=== PATIENT | male | born 1945 | race Caucasian/White ===

== ENCOUNTER 2019-07-16 05:53 | Day surgery (SDC) | payer OTHER, MEDICARE ==
[~2019-07-16] VITALS: Ht 182.9 cm; Wt 71.9 kg
[~2019-07-16 05:53] MED LIST: ACET500 PO; ALLEGRA ALLERG180 MG PO; Anti-Diarrheal2 MG PO; HYDACE5; LEVSOD50 PO; LISI5 PO; METO100ER PO; OMEP20ER PO; SUCR1 PO
--- NOTE | 2019-07-16 06:24 | NUR ---
History, Chart, Medications and Allergies reviewed before start of procedure. Patient confirms NPO status and agrees with scheduled surgery. Patient States Post-Procedure ride home has been arranged with his , Eugenia.
--- NOTE | 2019-07-16 10:18 | NUR ---
recieved patient from pacu vss alert oriented. given water to drink and brought to bedside. after 15-20 minutes patient continues to be the same and wishes to get dressed and to go home.
--- NOTE | 2019-07-16 10:21 | NUR ---
Discharge instructions reviewed with patient. Patient verbalizes understanding. Copy given to patient to take home. Patient States Post-Procedure ride home has been arranged. Discharged via wheelchair to private car for ride home.
== END 2019-07-16 22:58 | disposition home or self-care (01) ==
LOC: ORSCMMR 05:53
PROVIDERS: Surgery
PROC: 0YU50JZ Supplement Right Inguinal Region with Synthetic Substitute, Open Approach (ICD-10-PCS; principal; 2019-07-16 07:30)
DX: K40.90 Unilateral inguinal hernia, without obstruction or gangrene, not specified as recurrent (principal); E03.9 Hypothyroidism, unspecified; K21.9 Gastro-esophageal reflux disease without esophagitis; Z79.899 Other long term (current) drug therapy
CPT/HCPCS: A9270-GY; C1781; J0690; J1100; J1885; J2250; J2405; J2704; J3010; J7120

== ENCOUNTER → 2022-07-15 | Outpatient (CLI) | payer OTHER ==
[2022-07-15 13:30] LABS: Bun/Creatinine Ratio 16.5 (12.0-20.0); Creatinine, Blood 0.85 mg/dL (0.60-1.20); Magnesium, Blood 1.9 mg/dL (1.6-2.4)
[2022-07-19 15:09] LABS: A/G RATIO 1.3 (0.7-1.7); ALBUMIN 3.9 g/dL (2.9-4.4); ALPHA-1-GLOBULIN 0.2 g/dL (0.0-0.4); ALPHA-2-GLOBULIN 0.6 g/dL (0.4-1.0); BETA GLOBULIN 0.9 g/dL (0.7-1.3); GAMMA GLOBULIN 1.3 g/dL (0.4-1.8); GLOBULIN, TOTAL 3.1 g/dL (2.2-3.9); M-SPIKE Not Observed g/dL (Not Observed)
== END | disposition home or self-care (01) ==
LOC: LAB 13:16 → LAB SHORT 13:16
PROVIDERS: Emergency Medicine
DX: N39.0 Urinary tract infection, site not specified (principal)
CPT/HCPCS: 80048; 82330; 83735; 84100

== ENCOUNTER 2023-01-24 08:30 | Day surgery (SDC) | payer OTHER ==
[2023-01-24] VITALS (11 sets, daily range): BP systolic 98–126; BP diastolic 60–80
[~2023-01-24] VITALS: Ht 182.9 cm; Wt 69.7 kg
[~2023-01-24 08:30] MED LIST changes: +IBUP200 PO
--- NOTE | 2023-01-24 15:43 | NUR ---
PT ARRIVED TO THE ROOM AT 1450. PT IS ALERT AND ORIENTED. TOLERATING PO. PT STILL HAS NUMBNESS/UNABLE TO MOVE BLE R/T SPINAL ANESTHESIA. PT ASSESSED FOR IGNITION SOURCES, NO FINDINGS. SPINAL ANESTHESIA SITE WNL.
--- NOTE | 2023-01-24 18:22 | NUR ---
SHIFT SUMMARY PT IS POD#0 FROM R TKA WITH DR. YOUNGER. PT HAS DENIED PAIN SINCE SURGERY, HE IS STARTING TO MOVE HIS LOWER EXTREMITIES. PT IS TOLERATING PO, VSS. FAMILY AT BEDSIDE FOR SUPPORT. WILL MONITOR UNTIL REPORT TO TIMOTEO ESPINO.
[2023-01-25 03:08] VITALS: BP 115/72
--- NOTE | 2023-01-25 04:56 | NUR ---
SHIFT SUMMARY, POD 1 R TKA. AQUACEL AND JAZMÍN WRAP DRESSING TO RLE, C/D/I.UP WITH 2 ASSIST FOR FIRST TIME AMBULATING, VOIDING WELL. TOLERATING PO INTAKE, AND PO PAIN PILLS. IV ABX INFUSED. PLAN FOR THERAPY IN AM, CALL LIGHT IN REACH. WILL REPORT TO ONCOMING RN.
[2023-01-25 05:03] LABS: BASOPHILS PERCENT AUTO 0 % (0-2); EOSINOPHILS PERCENT AUTO 0 % (0-6); Hematocrit 32.9 % (37.0-53.0); Hemoglobin 11.2 g/dL (13.5-17.5); IMMATURE GRAN ABSOLUTE AUTO 0.01 K/mm3 (0.00-0.10); IMMATURE GRAN PERCENT AUTO 0 % (0-1); LYMPHOCYTES ABSOLUTE AUTO 0.54 K/mm3 (0.84-5.20); LYMPHOCYTES PERCENT AUTO 9 % (21-46); MONOCYTES ABSOLUTE AUTO 0.38 K/mm3 (0.16-1.47); MONOCYTES PERCENT AUTO 7 % (4-13); Mean Corpuscular HGB 32.6 pg (26.0-34.0); Mean Corpuscular Volume 96 fL (80-100); Mean Platelet Volume 10.1 fL (9.1-12.4); NEUTROPHILS ABSOLUTE AUTO 4.94 K/mm3 (1.96-9.15); NEUTROPHILS PERCENT AUTO 84 % (41-73); Platelet Count 157 K/mm3 (150-400); RDW Coefficient Variation 13.5 % (11.7-14.2); RDW Standard Deviation 47.8 fL (35.1-46.3); Red Blood Cell Count 3.44 M/mm3 (4.30-5.90); White Blood Cell Count 5.87 K/mm3 (4.00-11.30)
[2023-01-25 05:51] LABS: Bun/Creatinine Ratio 29.8 (12.0-20.0); Calcium, Blood 8.5 mg/dL (8.5-10.1); Creatinine, Blood 0.67 mg/dL (0.60-1.20); Potassium, Blood 4.1 mmol/L (3.5-5.5)
[2023-01-25 07:41] VITALS: BP 139/67
--- NOTE | 2023-01-25 13:00 | NUR ---
PATIENT DISCHARGED AT THIS TIME TO HOME WITH SPOUSE. BOTH STATE UNDERSTANDING OF MEDS, WOUND CARE, ACTIVITY, OP PT, F/U APPT, ETC. PATIENT STATES PAIN WELL CONTROLLED AT THIS TIME.
[2023-01-26] MEDS ORDERED: LATA.005SO (20:16)
[2023-01-26] MEDS ORDERED: AMLO5 PO (20:16)
[2023-01-26] MEDS ORDERED: Percocet 5-3251 EACH (20:16)
== END 2023-01-25 13:00 | disposition home or self-care (01) ==
LOC: ORSCMMR 08:30 → ORD 10:00 → ORSCMMR 10:00 → ORD 11:15 → SURS 14:47 → ORSCMMR 01-25 13:00 → ORD 05-16 08:15
PROVIDERS: Orthopaedic Surgery
PROC: 0SRC0JA Replacement of Right Knee Joint with Synthetic Substitute, Uncemented, Open Approach (ICD-10-PCS; principal; 2023-01-24 10:00)
DX: M17.0 Bilateral primary osteoarthritis of knee (principal); I10 Essential (primary) hypertension; E03.9 Hypothyroidism, unspecified; K21.9 Gastro-esophageal reflux disease without esophagitis; K76.0 Fatty (change of) liver, not elsewhere classified; Z79.899 Other long term (current) drug therapy
CPT/HCPCS: 36415; 73560-RT; 80048; 85025; 97110; 97116; 97162; A9270; C1776; J0171; J0690; J0735; J1100; J1885; J2250; J2371; J2704; J2795; J3010; J7120

== ENCOUNTER 2023-01-26 19:52 | Emergency (ER) | payer OTHER ==
[~2023-01-26] VITALS: Ht 182.9 cm; Wt 77.1 kg
[2023-01-26 20:11] VITALS: BP 146/87
[2023-01-26] MEDS ORDERED: LATA.005SO (20:16)
[2023-01-26] MEDS ORDERED: AMLO5 PO (20:16)
[2023-01-26] MEDS ORDERED: Percocet 5-3251 EACH (20:16)
== END 2023-01-26 20:40 | disposition home or self-care (01) ==
LOC: ER 19:52
DX: Z48.01 Encounter for change or removal of surgical wound dressing (principal); I10 Essential (primary) hypertension; Z79.899 Other long term (current) drug therapy
CPT/HCPCS: 99282

== ENCOUNTER 2023-12-20 07:00 | Day surgery (SDC) | payer OTHER ==
[~2023-12-20] VITALS: Ht 182.9 cm; Wt 76.0 kg
[2023-12-20] VITALS (13 sets, daily range): BP systolic 107–155; BP diastolic 69–92
[~2023-12-20 07:00] MED LIST changes: +AMLO5 PO; +ASPI81CH PO; +GABA300; +IBUP800 PO; +LATA.005SO BOTHEYES; +Lactated Ringer's 1,000 ML IV SCH; +Percocet 5-3251 EACH; +propofoL 40 ML IV ONE
--- NOTE | 2023-12-20 07:27 | NUR ---
Ambulatory in Day SurgeryPre-Op teaching done. Pt verbalizes understanding. History, Chart, Medications and Allergies reviewed before start of procedure.Patient confirms NPO status and agrees with scheduled surgery. Patient States Post-Procedure ride home has been arranged.
[2023-12-20] MEDS ORDERED: Midazolam HCl 1MG / ML 2ML Vial ONE (08:21)
--- NOTE | 2023-12-20 08:30 | NUR ---
12/20/23 0830 Dunia Yun HISTORY, CHART, MEDICATIONS AND ALLERGIES REVIEWED BEFORE START OF PROCEDURE. PATIENT CONFIRMS NPO STATUS AND AGREES WITH SCHEDULED PROCEDURE. 3-LEAD EKG REVIEWED WITH PHYSICIAN PRIOR TO START OF PROCEDURE. MONITOR INTACT WITH CONTINUOUS PULSE OXIMETRY,CAPNOGRAPHY, 3-LEAD EKG, INTERMITTENT BP. SUPPLEMENTAL O2 TO BE TITRATED THROUGHOUT PROCEDURE TO MAINTAIN O2 SATURATION ABOVE 90%. PATIENT DETERMINED TO BE ASA APPROPRIATE FOR PROPOFOL SEDATION PRIOR TO START OF PROCEDURE BY DR. FRIEND
--- NOTE | 2023-12-20 09:17 | NUR ---
DISCHARGE: Patient up to Ambulate independently. Gait steady. Discharge instructions reviewed with patient. Patient verbalizes understanding. Copy given to patient to take home, WELL FAMILY. Patient States Post-Procedure ride home has been arranged. Discharged via wheelchair to private car for ride home.
== END 2023-12-20 09:17 | disposition home or self-care (01) ==
LOC: ORSCMMR 07:00 → ORD 08:00 → ORSCMMR 08:00
PROVIDERS: Internal Medicine Gastroenterology
PROC: 0DJD8ZZ Inspection of Lower Intestinal Tract, Via Natural or Artificial Opening Endoscopic (ICD-10-PCS; principal; 2023-12-20 08:00)
DX: Z12.11 Encounter for screening for malignant neoplasm of colon (principal); I10 Essential (primary) hypertension; E03.9 Hypothyroidism, unspecified; D64.9 Anemia, unspecified; Z79.899 Other long term (current) drug therapy
CPT/HCPCS: J2250; J2704; J7120